=== PATIENT | female | born 1990 | race Caucasian/White ===

== ENCOUNTER 2017-05-03 14:22 | Emergency (ER) | payer OTHER ==
[2017-05-03 14:25] VITALS: BP 123/76
== END 2017-05-03 15:05 | disposition home or self-care (01) ==
LOC: ED 14:22
DX: J39.2 Other diseases of pharynx (principal); I82.890 Acute embolism and thrombosis of other specified veins

== ENCOUNTER 2017-08-29 00:53 | Emergency (ER) | payer OTHER ==
[2017-08-29 04:50] VITALS: BP 118/76
== END 2017-08-29 04:50 | disposition home or self-care (01) ==
LOC: ED 00:53
DX: S61.301A Unspecified open wound of left index finger with damage to nail, initial encounter (principal); Z88.0 Allergy status to penicillin; Z90.89 Acquired absence of other organs; X58.XXXA Exposure to other specified factors, initial encounter; Y93.89 Activity, other specified; Y99.8 Other external cause status; Y92.89 Other specified places as the place of occurrence of the external cause
CPT/HCPCS: A4570; J1885; J2001

== ENCOUNTER 2017-09-21 20:27 | Emergency (ER) | payer OTHER ==
[2017-09-21 23:55] LABS: microscopic required? YES; urine erythrocyte 3+ (NEGATIVE)
[2017-09-22 01:10] VITALS: BP 128/86
== END 2017-09-22 01:10 | disposition home or self-care (01) ==
LOC: ED 20:27
PROVIDERS: Emergency Medicine Emergency Medical Services
DX: N39.0 Urinary tract infection, site not specified (principal); Z88.0 Allergy status to penicillin; Z90.89 Acquired absence of other organs

== ENCOUNTER 2017-10-22 19:34 | Emergency (ER) | payer OTHER ==
[2017-10-22 22:08] VITALS: BP 107/58
== END 2017-10-22 22:08 | disposition home or self-care (01) ==
LOC: ED 19:34
DX: O23.41 Unspecified infection of urinary tract in pregnancy, first trimester (principal); Z3A.01 Less than 8 weeks gestation of pregnancy; Z88.0 Allergy status to penicillin

== ENCOUNTER 2018-01-20 20:44 | Emergency (ER) | payer OTHER ==
[~2018-01-20] VITALS: Ht 149.9 cm; Wt 57.1 kg
[2018-01-20 20:46] VITALS: Ht 149.9 cm; Wt 57.1 kg
[2018-01-20 22:28] VITALS: BP 106/55
== END 2018-01-20 22:28 | disposition home or self-care (01) ==
LOC: ED 20:44
DX: O26.891 Other specified pregnancy related conditions, first trimester (principal); Z88.0 Allergy status to penicillin; Z94.9 Transplanted organ and tissue status, unspecified

== ENCOUNTER 2018-01-31 16:47 | Emergency (ER) | payer OTHER ==
[~2018-01-31] VITALS: Ht 149.9 cm; Wt 58.5 kg
[2018-01-31 16:51] VITALS: Ht 149.9 cm; Wt 58.5 kg
[2018-01-31 18:36] VITALS: BP 127/79
== END 2018-01-31 18:36 | disposition home or self-care (01) ==
LOC: ED 16:47
DX: O26.892 Other specified pregnancy related conditions, second trimester (principal); R10.9 Unspecified abdominal pain; Z3A.18 18 weeks gestation of pregnancy; Z88.0 Allergy status to penicillin; W18.2XXA Fall in (into) shower or empty bathtub, initial encounter; Y93.89 Activity, other specified; Y99.8 Other external cause status; Y92.89 Other specified places as the place of occurrence of the external cause

== ENCOUNTER 2018-12-26 17:14 | Emergency (ER) | payer MEDICAID ==
[~2018-12-26] VITALS: Ht 149.9 cm; Wt 54.4 kg
[2018-12-26 17:41] VITALS: Ht 149.9 cm; Wt 54.4 kg
[2018-12-26 20:57] LABS: BASOPHIL % 0.6 % (0-2); PLATELET COUNT 199 x10^3mcL (130-400)
[2018-12-26 20:58] LABS: RED CELL DISTRIBUTION WIDTH 15.2 % (11.5-14.5)
[2018-12-26 21:13] LABS: CARBON DIOXIDE 25.8 mmol/L (21-32); CHLORIDE SERUM 106 mmol/L (98-107); CREATININE SERUM 0.8 mg/dL (0.6-1.0); GFR1 > 60 mL/min; GLUCOSE SERUM 107 mg/dL (74-106); POTASSIUM SERUM 3.7 mmol/L (3.5-5.1); SODIUM SERUM 141 mmol/L (136-145)
[2018-12-26 21:28] LABS: ALBUMIN 3.8 g/dL (3.4-5.0); ALKALINE PHOSPHATASE 92 U/L (46-116); ALT/SGPT 20 U/L (14-59); AST/SGOT 17 U/L (15-37); BILIRUBIN TOTAL 0.17 mg/dL (0.20-1.00); TOTAL PROTEIN, SERUM 7.8 g/dL (6.4-8.2)
[2018-12-26 22:14] VITALS: BP 138/78
== END 2018-12-26 22:14 | disposition home or self-care (01) ==
LOC: ED 17:14
PROVIDERS: Emergency Medicine
DX: R10.2 Pelvic and perineal pain (principal); R10.31 Right lower quadrant pain; H92.02 Otalgia, left ear; Z90.89 Acquired absence of other organs; Z88.0 Allergy status to penicillin; Z98.890 Other specified postprocedural states
CPT/HCPCS: 36415

== ENCOUNTER 2019-07-31 09:16 | Emergency (ER) | payer MEDICAID ==
[~2019-07-31] VITALS: Ht 149.9 cm; Wt 49.9 kg
[2019-07-31 09:27] VITALS: Ht 149.9 cm; Wt 49.9 kg
[2019-07-31 11:51] LABS: BASOPHIL % 0.5 % (0-2); PLATELET COUNT 200 x10^3mcL (130-400)
[2019-07-31 11:55] LABS: CALCIUM 8.7 mg/dL (8.5-10.1); CARBON DIOXIDE 28.8 mmol/L (21-32); CHLORIDE SERUM 107 mmol/L (98-107); CREATININE SERUM 0.5 mg/dL (0.6-1.0); GFR1 > 60 mL/min; GLUCOSE SERUM 95 mg/dL (74-106); POTASSIUM SERUM 5.2 mmol/L (3.5-5.1); SODIUM SERUM 141 mmol/L (136-145)
[2019-07-31 11:59] LABS: ALBUMIN 4.2 g/dL (3.4-5.0); ALKALINE PHOSPHATASE 106 U/L (46-116); ALT/SGPT 13 U/L (14-59); AST/SGOT 11 U/L (15-37); BILIRUBIN TOTAL 0.34 mg/dL (0.20-1.00); LIPASE 158 IU/L (73-393); TOTAL PROTEIN, SERUM 7.8 g/dL (6.4-8.2)
[2019-07-31 12:06] LABS: RED CELL DISTRIBUTION WIDTH 16.3 % (11.5-14.5)
[2019-07-31 13:03] VITALS: BP 110/65
== END 2019-07-31 13:03 | disposition home or self-care (01) ==
LOC: ED 09:16
PROVIDERS: Emergency Medicine
DX: N39.0 Urinary tract infection, site not specified (principal); Z90.49 Acquired absence of other specified parts of digestive tract; Z98.890 Other specified postprocedural states; Z88.0 Allergy status to penicillin
CPT/HCPCS: J1885; J2405; J7030

== ENCOUNTER 2019-10-09 19:36 | Emergency (ER) | payer MEDICAID ==
[~2019-10-09] VITALS: Ht 149.9 cm; Wt 52.2 kg
[2019-10-09 19:44] VITALS: BP 103/63; Ht 149.9 cm; Wt 52.2 kg
== END 2019-10-09 20:18 | disposition home or self-care (01) ==
LOC: ED 19:36
DX: M54.41 Lumbago with sciatica, right side (principal); Z88.0 Allergy status to penicillin; Z98.890 Other specified postprocedural states; Z90.89 Acquired absence of other organs

== ENCOUNTER 2020-01-30 11:27 | Emergency (ER) | payer MEDICAID ==
[~2020-01-30] VITALS: Ht 149.9 cm; Wt 53.1 kg
[2020-01-30 11:56] VITALS: BP 120/73; Ht 149.9 cm; Wt 53.1 kg
== END 2020-01-30 15:15 | disposition home or self-care (01) ==
LOC: ED 11:27
DX: B34.9 Viral infection, unspecified (principal); R30.0 Dysuria; R30.9 Painful micturition, unspecified; Z90.89 Acquired absence of other organs; Z98.890 Other specified postprocedural states; Z88.0 Allergy status to penicillin

== ENCOUNTER 2020-05-11 13:18 | Emergency (ER) | payer MEDICAID ==
[~2020-05-11] VITALS: Ht 152.4 cm; Wt 52.6 kg
[2020-05-11 13:27] VITALS: Ht 152.4 cm; Wt 52.6 kg
[2020-05-11 16:46] VITALS: BP 116/70
== END 2020-05-11 16:46 | disposition home or self-care (01) ==
LOC: ED 13:18
DX: G44.209 Tension-type headache, unspecified, not intractable (principal); N39.0 Urinary tract infection, site not specified; Z88.0 Allergy status to penicillin; Z90.49 Acquired absence of other specified parts of digestive tract
CPT/HCPCS: J1885

== ENCOUNTER 2020-07-04 17:21 | Emergency (ER) | payer MEDICAID, SELFPAY ==
[~2020-07-04] VITALS: Ht 149.9 cm; Wt 52.6 kg
[2020-07-04 17:24] VITALS: Ht 149.9 cm; Wt 52.6 kg
[2020-07-04 19:10] VITALS: BP 122/71
== END 2020-07-04 19:10 | disposition home or self-care (01) ==
LOC: ED 17:21
DX: R51 Headache (principal); R11.0 Nausea; J34.89 Other specified disorders of nose and nasal sinuses; J02.9 Acute pharyngitis, unspecified; Z20.828 Contact with and (suspected) exposure to other viral communicable diseases; Z90.89 Acquired absence of other organs; Z98.890 Other specified postprocedural states; Z88.0 Allergy status to penicillin
CPT/HCPCS: J1885; U0003-CS

== ENCOUNTER 2020-10-18 20:10 | Emergency (ER) | payer MEDICAID ==
[~2020-10-18] VITALS: Ht 149.9 cm; Wt 52.2 kg
[2020-10-18 20:13] VITALS: Ht 149.9 cm; Wt 52.2 kg
[2020-10-18 20:52] VITALS: BP 118/72
== END 2020-10-18 20:52 | disposition home or self-care (01) ==
LOC: ED 20:10
DX: R20.2 Paresthesia of skin (principal); F32.9 Major depressive disorder, single episode, unspecified; F41.9 Anxiety disorder, unspecified; R51.9 Headache, unspecified; Z88.0 Allergy status to penicillin; Z90.89 Acquired absence of other organs; Z98.890 Other specified postprocedural states

== ENCOUNTER 2020-12-30 13:25 | Emergency (ER) | payer MEDICAID ==
[~2020-12-30] VITALS: Ht 149.9 cm; Wt 56.2 kg
[2020-12-30 13:46] VITALS: Ht 149.9 cm; Wt 56.2 kg
[2020-12-30 15:56] VITALS: BP 105/65
== END 2020-12-30 15:56 | disposition home or self-care (01) ==
LOC: ED 13:25
DX: N64.4 Mastodynia (principal); N63.0 Unspecified lump in unspecified breast; Z90.89 Acquired absence of other organs; Z98.890 Other specified postprocedural states; Z88.0 Allergy status to penicillin